=== PATIENT | female | born 1965 | race Caucasian/White ===

== ENCOUNTER → 2016-06-27 | Outpatient (CLI) | payer OTHER ==
[~2016-06-27] MED LIST: ALBU1NEB10 INH; ALBUAER19 INH; ALPR-411 PO; CHOL4POW6 PO; CLOTLOT2 TOP; DICL1GEL28 TOP; FENT75DI17 TD; FURO-85 PO; HYDR-3983 PO; IPRA1AER2 INH; MOME100A INH; NYST100098 TOP; OXGN; PANT1TAB48 PO; [UNRECOGNIZED DRUG - CODE] TOP
--- NOTE | 2016-06-27 12:11 | DIAGNOSTIC IMAGING REPORT ---
CHEST 2 VIEWS ROUTINE CLINICAL HISTORY: Edema COMPARISON STUDY: 10/27/2015 FINDINGS: The cardiac and mediastinal contours are normal. There is no evidence of focal pulmonary consolidation. There is no evidence of failure. No pleural effusions are visualized.[ IMPRESSION: No active disease in the chest. Electronically signed by: Richard Schmidt M.D. 06/27/2016 12:09 PM Dictated Date/Time: 06/27/2016 12:09 PM
[2016-06-27 13:58] LABS: ALT/SGPT 18 U/L (12-78); BLOOD UREA NITROGEN 6 mg/dl (7-18); BUN/CREATININE RATIO 9.7 (10-20); CARBON DIOXIDE 25 mmol/L (21-32); CHLORIDE 107 mmol/L (98-107); CREATININE 0.58 mg/dl (0.60-1.20); GLUCOSE 88 mg/dl (70-99); MAGNESIUM 2.4 mg/dl (1.8-2.4); POTASSIUM 3.8 mmol/L (3.5-5.1); SODIUM 138 mmol/L (136-145)
[2016-06-27 14:02] LABS: ALKALINE PHOSPHATASE 106 U/L (45-117); AST/SGOT 14 U/L (15-37)
== END | disposition home or self-care (01) ==
LOC: C.RAD1850 11:40
PROVIDERS: ATTEND Physician Assistant
DX: R60.9 Edema, unspecified (principal)